=== PATIENT | female | born 1960 | race Caucasian/White ===

== ENCOUNTER 2025-03-18 10:55 | Outpatient (AMB) | payer OTHER, SELFPAY ==
--- NOTE | 2025-03-18 11:08 | A.PHYSOV ---
Vital Signs 03/18/25 11:09 Height 5 ft 4 in Weight 178 lb BMI 30.6 Intake Visit Reasons: Rt shoulder & rt hip injections Intake Note: Patient is a 64 year old female here today for injections in her right shoulder and right hip. Patient Transporter Required: No Allergies Penicillins Allergy (Unknown, Verified 03/18/25 11:10) Unknown shellfish derived (shellfish) Allergy (Unknown, Verified 03/18/25 11:10) Unknown wine spirit Allergy (Unknown, Verified 03/18/25 11:10) Unknown [facility] Social History Alcohol intake: current Alcohol intake frequency: holidays/special occasions only Patient Tobacco Use Status: Never used Tobacco Use of substances other than those prescribed or required for medical reasons: Yes Substance Use Type: Marijuana Physical Exam Vital Signs: BMI result Body Mass Index 30.6 Office Procedures AMB Hip Injection AMB Hip Injection Procedure Details: Right Greater trochanteric bursal injection: The risks, benefits and complications of the right greater trochanteric bursitis/gluteal tendinopathy were discussed with the patient, including but not limited to infection, increased serum glucose, nerve damage, bleeding and pain. All questions were answered to the patient's satisfaction. Verbal consent was obtained. The patient was eager to proceed. Patient was cleansed with Betadine, ethyl chloride was then used to desensitize the skin. Using an a 25-gauge needle 40 mg of Kenalog and 3 mL 2% lidocaine were injected over the greater trochanter of maximal tenderness. The patient tolerated the procedure well without immediate complication. Postinjection instructions were given. Hip (Bursa) Injection - : Right All charges added?: Procedure code (CPT) selection complete AMB Shoulder Injection AMB Shoulder Injection Procedure Details: Right Subacromial injection Procedure: The patient was educated about risks, complications and benefits including but not limited to increased serum glucose, infection, nerve damage, bleeding, tendon/ligament damage and pain. We agree with a subacromial injection is the next best step in the treatment plan. Verbal consent was obtained. Using aseptic technique, the skin was cleansed with Betadine. Ethyl chloride was used to desensitize the skin. Using a posterior approach, 40 mg of Kenalog and 3 mL 2% lidocaine were injected using a 25-gauge inch and a half needle into the subacromial space. The patient tolerated the procedure well without immediate complication. Postinjection instructions were given. Shoulder Injection - : Right All charges added?: Procedure code (CPT) selection complete Office Meds Kenalog 40 mg/mL suspension for injection Performing Provider: CANDIS Gray Performing Location: [facility] Administered by: CANDIS Gray on 03/18/25 14:33 Dose Route Admin Location Dispensed Lot Number Expiration Date [facility] [employer] 40 mg intra-articular 1 mL [id number] [employer] Total Dispensed Waste 1 mL 0 % lidocaine (PF) 20 mg/mL (2 %) injection solution Performing Provider: CANDIS Gray Performing Location: [facility] Administered by: CANDIS Gray on 03/18/25 14:33 Dose Route Admin Location Dispensed Lot Number Expiration Date [facility] [employer] 60 mg intra-articular 50 mL [id number] Total Dispensed Waste 50 mL 0 % Kenalog 40 mg/mL suspension for injection Performing Provider: CANDIS Gray Performing Location: [facility] Administered by: CANDIS Gray on 03/18/25 14:33 Dose Route Admin Location Dispensed Lot Number Expiration Date [facility] [employer] 40 mg intra-articular 1 mL [id number] [employer] Total Dispensed Waste 1 mL 0 % lidocaine (PF) 20 mg/mL (2 %) injection solution Performing Provider: CANDIS Gray Performing Location: [facility] Administered by: CANDIS Gray on 03/18/25 14:33 Dose Route Admin Location Dispensed Lot Number Expiration Date [facility] [employer] 60 mg intra-articular 50 mL [id number] Total Dispensed Waste 50 mL 0 % Assessment & Plan Assessment & Plan (1) Impingement of right shoulder: Code(s): M25.811 - Other specified joint disorders, right shoulder Category: Medical (2) Trochanteric bursitis, right hip: Code(s): M70.61 - Trochanteric bursitis, right hip Category: Medical Plan Ms. Sandoval is a 62-year-old female seen in evaluation today for right shoulder impingement as well as right hip bursitis. Today she consented to subacromial injection as well as hip bursal injection. She was given post-injection instructions, recommend: Moist heat compresses for 15 minutes up to 5 times daily. She will continue her home exercise plan and medications as prescribed. Patient is requesting referral to Orthopedics for more definitive treatment for her right shoulder pain. She is requesting referral to [facility] which I will place today. Follow-up with our office as needed. Orders: Orders AMB Shoulder Injection Today M25.811 - Other specified joint disorders, right shoulder AMB Hip/Bursa Injection Today M70.61 - Trochanteric bursitis, right hip Referrals Orthopedics Referral M25.811 - Other specified joint disorders, right shoulder Coding Level of Care Code Procedure Only Diagnoses Impingement of right shoulder M25.811 Trochanteric bursitis, right hip M70.61 CPT Codes AMB Hip Injection - Hip/Bursa Injection - 93035: Right ([id number]) AMB Shoulder Injection - Hip/Bursa Injection - : Right ([id number])
[2025-03-18 11:09] VITALS: BMI 30.6
--- OUTSIDE RECORDS SUMMARY | 2025-03-18 13:26 | XMS_ITS | Clinical Summary ---
Author Organization [facility] [address] [facility] lding Address [address] [place] [address] Phone Care Team Providers Care Environmental Communications Specialist Name Role Phone Concha Aguirre MD Primary Care Prov ider Allergies Active Allergy Reactions Criticality Noted Date Comments Alcohol 12/07/2018 Red wine, angioedema? Covid-19 Vaccine, Bivalent, Mrna (Moderna) Other 02/16/2021 Tongue /mouth swelling responded to Benadryl Penicillins Other 07/01/2012 Heart pounding Medications EPINEPHrine (EpiPen 2-Daniele) 0.3 mg/0.3 mL injection Inject 0.3 mg into the muscle as needed for Other (anaphylactic reaction). 2-pack. Fill with whichever brand is covered by insurance. 4 Active naproxen (NAPROSYN) 500 mg tablet Take 1 Tablet by mouth 2 times daily as needed for Pain. 3 Active sertraline (ZOLOFT) 50 mg tablet TAKE 1 TABLET BY MOUTH EVERY DAY 90 tablet 1 5 Active semaglutide (Wegovy) 2.4 mg/0.75 mL injection penIndications: Severe obesity (CMS/HCC V24, CMS/HCC V28) Inject 2.4 mg under the skin every 7 (seven) days. 3 mL 3 5 03/28/20 25 Active Active Problems Problem Noted Date Diagnosed Date Family history of colon cancer in mother 025 Vitamin D deficiency 12/28/2024 Current mild episode of mariel r depressive disorder [place] [place] 12/28/2024 Other sleep apnea 03/29/2024 Severe obesity ([facility] [place], [facility] [place]28) 2023 Hyperlipidemia 09/30/2023 Prediabetes 09/23/2023 Lab test positive for detection of COVID-19 viru s 03/17/2020 Plantar fasciitis, bilateral 09/06/2014 Depression, reactive 07/01/2012 Encounters Date Type Department Care Team Description 12/28/2024 8:30 AM EDT Office Visit Adult Medicine [address] [address] Elyssa Hollis PA Family history of colon cancer in mother (Primary Dx); Severe obesity [place] [place] [facility] [place]28[place] Prediabetes; Hyperlipidemia, unspecified hyperlipidemia type; Other sleep apnea; Vitamin D deficiency; Current mild episode of major depressive disorder, unspecified whether recurrent ([facility] [place]) from Last 3 Months Immunizations Immunization Administration Dates Next Due Influenza Quadravalent, MDCK , 0.5ml, preservative free (Flucelvax) 6mo and older 01/19/2020,05/05/2019,04/24/2018 Influenza Quadravalent, MDCK , 0.5ml, with preservative (Flucelvax) 6mo and older 01/23/2017 Influenza trivalent, with pr eservative (Fluzone; Afluria) 6mo and older 01/28/2014 Moderna SARS-CoV-2 COVID-19, mRNA, LNP-S, preservative free 07/18/2020 Td Tetanus diptheria (Tdvax) 7yo and older 01/14 Tdap Tetanus diptheria acell ular pertussis (Boostrix; Adacel) 7yo and older 09/30/2023,07/01/2009 Surgical History Surgery Date Site/Laterality Comments OTHER SURGICAL HISTORY PROCEDURE: DENIES PREVIOUS SURGERY Family History Medical History Relation Name Comments Colon cancer Mother Relation Name Status Comments Brother Alive Father Alive Mother Social History Tobacco Use Types Packs/Day Years Used Date Smoking Tobacco: Never Smokeless Tobacco: Never Tobacco Cessation:Counseling Given: Not Answered Alcohol Use Standard Drinks/Week Comments Yes 0 (1 standard drink = 0.6 oz pur e alcohol) Housing Instability Answer Date Recorde d Are you worried that in the next 2 months you may not have stable housing? No 09/20/2024 Food Access & Nutrition Answer Date Rec orded Do you have access to a vari ety of food including fruits and vegetables? Yes 09/20/2024 Access to Healthcare Answer Date Record ed Within the last 3 months, ho w many times did you visit the emergency department for your medical care? 0 09/20/2024 Health Literacy Answer Date Recorded How often do you need to hav e someone help you when you read instructions, pamphlets, or other written material from your doctor or pharmacy? Rarely 09/20/2024 Caregiver: How often do you need to have someone help you when you read instructions, pamphlets, or other written material from your doctor or pharmacy? Not on file 09/20/2024 Financial Risk Answer Date Recorded How hard is it for you to pa y for the very basics like food, housing, medical care, and air conditioning / heating? Not very hard 09/20/2024 Transportation Answer Date Recorded Has the lack of transportati on kept you from meetings, work, or from getting things needed for daily living? No Has the lack of transportati on kept you from medical appointments or from getting medications? No 09/20/2024 Social Isolation Answer Date Recorded How often do you feel lonely or isolated from those around you? Sometimes 09/20/2024 Food Risk Answer Date Recorded Within the past 12 months we worried whether our food would run out before we got money to buy more. Sometimes true 025 Within the past 12 months th e food we bought just didn't last and we didn't have money to get more. Never true 09/20/2024 Dependent Care Answer Date Recorded Do you need help finding or paying for care for your loved ones. For example, early childhood education coordinator or elderly care for an older adult? No 09/20/2024 Education Answer Date Recorded Do you think completing more education or training, like finishing a GED, going to college, or learning a trade, would be helpful for you? No 09/20/2024 Employment and Income Answer Date Recor ded During the last four weeks, have you been actively looking for work? No 09/20/2024 Living Situation Answer Date Recorded What is your living situation? Unrecognized valu e 09/20/2024 Comments No Sex and Gender Information Value Date Recorded Sex Assigned at Not on file Legal Sex Female 7:48 AM EST Gender Identity Not on file Sexual Orientation Not on file Obstetrics History Last Filed Vital Signs Vital Sign Reading Time Taken Comments Blood Pressure 120/70 12/28/2024 8:19 AM EDT Pulse 64 12/28/2024 8:19 AM EDT Temperature 36.9 C (98.5 F) 12/28/2024 8:19 AM EDT Respiratory Rate 18 12/28/2024 8:19 AM EDT Oxygen Saturation - - Inhaled Oxygen Concentration - - Weight 83.5 kg (184 lb) 12/28/2024 8:19 AM EDT Height 162.6 cm (5' 4 ) 12/28/2024 8:19 AM EDT Body Mass Index 31.58 12/28/2024 8:19 AM EDT Plan of Treatment Upcoming Encounters Date Type Department Care Team (Late st Contact Info) Description 03/31/2025 8:30 AM EST Office Visit Adult Medicine - [place] [address] [place] [address] Elyssa Hollis PA [address] [place] [address] Health Maintenance Due Date Last Done Comments Pneumococcal Vaccine: 50+ Years (1 of 1 - PCV) 2012 RSV Immunization Adult Patients (1 - Risk 50-74 years 1-dose series) 2012 Zoster Vaccines (1 of 2) 2012 Cervical Cancer Screening: Pap Smear 03/06/2018 03/06/2015 HIV Screening 03/23/2022 Cholesterol Screening (Lipid Panel) 05/26/2024 05/26/2019 Breast Cancer Screening 11/19/2024 11/20/2023 COVID-19 Vaccine (2 - season) 2024 07/18/2020 Influenza Vaccine (#1) 2024 , 05/05/2019, 04/24/2018, Additional history exists Social Influencers of Health Screening 09/20/2025 09/20/2024 Colorectal Cancer Screening: Colonoscopy 11/01/2025 11/01/2020 DTaP,Tdap,and Td Vaccines (4 - Td or Tdap) 09/29/2033 09/30/2023, 07/01/2009, 01/15/2008 Hepatitis C Screening Completed 07/27/2013 Depression Screening Completed 09/20/2024 HIB Vaccines Aged Out No longer eligi ble based on patient's age to complete this topic HPV Vaccines Aged Out No longer eligi ble based on patient's age to complete this topic Hepatitis A Vaccines Aged Out No long er eligible based on patient's age to complete this topic Hepatitis B Vaccines Aged Out No long er eligible based on patient's age to complete this topic IPV Vaccines Aged Out No longer eligi ble based on patient's age to complete this topic MMR Vaccines Aged Out No longer eligi ble based on patient's age to complete this topic Meningococcal ACWY Vaccine Aged Out N o longer eligible based on patient's age to complete this topic Meningococcal B Vaccine Aged Out No l onger eligible based on patient's age to complete this topic RSV Immunization Patients Under 20 months Aged Out No longer eligible based on patient's age to complete this topic Varicella Vaccines Aged Out No longer eligible based on patient's age to complete this topic Procedures Procedure Name Priority Date/Time Associated Diagnosis Comments COLONOSCOPY Routine 11/01/2020 LIPID PANEL Routine 05/26/2019 PAP SMEAR Routine 03/06/2015 HEPATITIS C SCREENING Routine 07/27/2013 from Last 3 Months or Most Recently Relevant to Health Maintenance Results * Colonoscopy (11/01/2020) Colonoscopy no interpretation , abstracted Anatomical Region Laterality Modality Other Historical Provider MD HEALTH MAINTENANCE Final Result * Lipid panel (05/26/2019) LDL/HDL Ratio 0 Comment:no interpretation Triglycerides 0 mg/dL Comment:no interpretation Cholesterol 0 mg/dL Comment:no interpretation HDL 0 mg/dL Comment:no interpretation LDL Cholesterol 0 mg/dL Comment:no interpretation Blood Venous blood specimen / Unknown Historical Provider LAB BLOOD ORDERABLES Jayne l Result * Pap Smear (03/06/2015) Pap smear no interpretation , abstracted Historical Provider HEALTH MAINTENANCE Final Result * Hepatitis C Screening (07/27/2013) Pathologist [facility] Hepatitis C Screening abstracted Historical Provider HEALTH MAINTENANCE Final Result from Last 3 Months or Most Recently Relevant to Health Maintenance Insurance [facility] Care Teams Environmental Communications Specialist Relationship Specialty Start Date End Date Concha Aguirre MD [address] [place] [id number] PCP - General Internal Medicine 06/03/12
== END 2025-03-18 11:52 | disposition home or self-care (01) ==
LOC: HO.HPHYS 10:55
PROVIDERS: PCP Internal Medicine; Visit Provider Physician Assistant
DX: M25.811 Other specified joint disorders, right shoulder (principal); M70.61 Trochanteric bursitis, right hip
CPT/HCPCS: 20610

== ENCOUNTER → 2025-03-18 10:55 | Outpatient (BNVA) | payer OTHER, SELFPAY | PROVIDERS: PCP Internal Medicine; Visit Provider Physician Assistant | DX: M25.811 Other specified joint disorders, right shoulder (principal); M70.61 Trochanteric bursitis, right hip | CPT/HCPCS: 20610; J2003; J3301 ==